=== PATIENT | male | born 1950 | race Asian ===

== ENCOUNTER 2016-12-12 10:05 | Emergency (ER) | payer MEDICARE, OTHER ==
[~2016-12-12] VITALS: Ht 162.6 cm; Wt 77.7 kg
[2016-12-12] MEDS ORDERED: ATOR40TA28 PO (10:32)
[2016-12-12] MEDS ORDERED: AMLO-512 PO (10:32)
[2016-12-12] MEDS ORDERED: TELM40 PO (10:32)
[2016-12-12] MEDS ORDERED: METO25XL PO (10:32)
[2016-12-12] MEDS ORDERED: SODIUM CHLORIDE 0.9% 500 ML IV ONE (10:45)
[2016-12-12] MEDS ORDERED: MECLIZINE HCL 25 MG TABLET PO ONE ×2 (10:45→12:15)
[2016-12-12 11:00] LABS: BASOPHILS % (AUTO) 1.9 % (0.0-2.0); EOSINOPHILS # (AUTO) 0.37 K/uL (0.00-0.70); EOSINOPHILS % (AUTO) 7.16 % (1.0-6.0); HEMATOCRIT 47.9 % (41-53); HEMOGLOBIN 16.1 g/dL (13.5-17.5); LYMPHOCYTES # (AUTO) 1.6 K/uL (1.0-4.8); LYMPHOCYTES % (AUTO) 29.6 % (22.0-44.0); MEAN CORPUSCULAR HEMOGLOBIN 27.6 pg (26.0-34.0); MEAN CORPUSCULAR HGB CONC 33.7 G/dL (31.0-37.0); MEAN CORPUSCULAR VOLUME 82 fL (80-100); MONOCYTES # (AUTO) 0.5 K/uL (0.1-1.0); MONOCYTES % (AUTO) 9.8 % (2.0-9.0); NEUTROPHILS # (AUTO) 2.7 K/uL (1.8-7.7); NEUTROPHILS % (AUTO) 51.5 % (40.0-70.0); PLATELET COUNT (AUTO) 168 K/uL (150-450); RED BLOOD CELL COUNT(AUTO) 5.85 MIL/uL (4.50-5.90); RED CELL DISTRIBUTION WIDTH 14.2 % (11.5-14.5)
[2016-12-12 11:02] LABS: GLUCOSE,POINT OF CARE 105 MG/DL (70-110)
[2016-12-12 11:15] LABS: ANION GAP 8 mmol/L (8-16); CALCIUM, TOTAL 8.7 mg/dL (8.8-10.5); CARBON DIOXIDE 28 mmol/L (22-29); CHLORIDE 104 mmol/L (98-107); CREATININE 0.96 mg/dL (0.60-1.30); GLOMERULAR FILTR. RATE CALC > 60 mL/min (>60); GLUCOSE,RANDOM 106 mg/dL (70-110); POTASSIUM 3.4 mmol/L (3.5-5.1); SODIUM SERUM 140 mmol/L (136-145); UREA NITROGEN, BLOOD 11 mg/dL (7-18)
[2016-12-12 11:20] LABS: ALANINE AMINOTRANSFERASE 25 U/L (12-78); ALBUMIN 4.1 g/dL (3.4-5.0); ALKALINE PHOSPHATASE 97 U/L (46-116); ASPARTATE AMINOTRANSFERASE 20 U/L (15-37); BILIRUBIN,TOTAL 0.7 mg/dL (0.1-1.0); LIPASE 168 U/L (73-393); TOTAL PROTEIN, SERUM 7.4 g/dL (6.4-8.2)
[2016-12-12] MEDS ORDERED: POTASSIUM CHLORIDE 20 MEQ ER TABLET PO ONE (11:30)
[2016-12-12] MEDS ORDERED: ONDANSETRON HCL 4 MG/2 ML VIAL IVP ONE (12:15)
[2016-12-12 14:26] LABS: APPEARANCE,URINE CLEAR (CLEAR); BILIRUBIN,URINE NEGATIVE (NEGATIVE); GLUCOSE, URINE (UA) NEGATIVE (NEGATIVE); KETONES,URINE NEGATIVE (NEGATIVE); LEUKOCYTE ESTERASE ,URINE NEGATIVE (NEGATIVE); NITRATE,URINE NEGATIVE (NEGATIVE); OCCULT BLOOD,URINE NEGATIVE (NEGATIVE); PROTEIN,URINE NEGATIVE (NEGATIVE); UROBILINOGEN,URINE 0.2 mg/dL (<=1.0)
[2016-12-12 14:32] LABS: RBC,URINE None Seen /HPF (0-2)
[2016-12-12 14:33] LABS: BACTERIA,URINE None Seen /HPF (None Seen); SQUAMOUS EPITHELIAL CELL,UR Rare /LPF (None Seen); WBC,URINE 0-2 /HPF (0-5)
[2016-12-12 16:30] VITALS: BP 122/74
== END 2016-12-12 16:30 | disposition home or self-care (01) ==
LOC: EMS 10:06
DX: R42 Dizziness and giddiness (principal); I10 Essential (primary) hypertension; I25.10 Atherosclerotic heart disease of native coronary artery without angina pectoris; E78.00 Pure hypercholesterolemia, unspecified; K21.9 Gastro-esophageal reflux disease without esophagitis; Z87.891 Personal history of nicotine dependence
CPT/HCPCS: 36415; 70450; 80053; 81001; 82948; 82962; 83690; 84484; 85025; 93005; 96361; 96374; 99285; J2405; J7030

== ENCOUNTER → 2017-03-16 | Outpatient (CLI) | payer MEDICARE, OTHER ==
[~2017-03-16] MED LIST: AMLO-512 PO; ATOR40TA28 PO; METO25XL PO; TELM40 PO
== END | disposition home or self-care (01) ==
LOC: RADPV 11:52
PROVIDERS: ATTEND Internal Medicine
DX: R91.8 Other nonspecific abnormal finding of lung field (principal); I70.0 Atherosclerosis of aorta
CPT/HCPCS: 71046

== ENCOUNTER 2018-05-16 23:01 | Emergency (ER) | payer MEDICARE, OTHER ==
[~2018-05-16] VITALS: Ht 162.6 cm; Wt 78.2 kg
[2018-05-16] MEDS ORDERED: FEXO1TAB8 PO (23:11)
[2018-05-16] MEDS ORDERED: ASPI-1182 PO (23:11)
[2018-05-16 23:30] LABS: BASOPHILS % (AUTO) 0.8 % (0.0-2.0); EOSINOPHILS % (AUTO) 4.2 % (1.0-6.0); HEMATOCRIT 46.3 % (41-53); HEMOGLOBIN 15.7 g/dL (13.5-17.5); LYMPHOCYTES # (AUTO) 2.1 K/uL (1.0-4.8); LYMPHOCYTES % (AUTO) 27.1 % (22.0-44.0); MEAN CORPUSCULAR HEMOGLOBIN 27.3 pg (26.0-34.0); MEAN CORPUSCULAR HGB CONC 33.9 G/dL (31.0-37.0); MEAN CORPUSCULAR VOLUME 81 fL (80-100); MONOCYTES # (AUTO) 0.7 K/uL (0.1-1.0); MONOCYTES % (AUTO) 8.9 % (2.0-9.0); NEUTROPHILS # (AUTO) 4.7 K/uL (1.8-7.7); PLATELET COUNT (AUTO) 205 K/uL (150-450); RED BLOOD CELL COUNT(AUTO) 5.74 MIL/uL (4.50-5.90); RED CELL DISTRIBUTION WIDTH 14.4 % (11.5-14.5)
[2018-05-16 23:43] LABS: ANION GAP 11 mmol/L (8-16); CALCIUM, TOTAL 9.4 mg/dL (8.8-10.5); CARBON DIOXIDE 27 mmol/L (22-29); CHLORIDE 101 mmol/L (98-107); CREATININE 1.13 mg/dL (0.60-1.30); GLOMERULAR FILTR. RATE CALC > 60 mL/min (>60); GLUCOSE,RANDOM 104 mg/dL (70-110); POTASSIUM 3.6 mmol/L (3.5-5.1); SODIUM SERUM 139 mmol/L (136-145); UREA NITROGEN, BLOOD 10 mg/dL (7-18)
[2018-05-16 23:49] LABS: ALANINE AMINOTRANSFERASE 25 U/L (12-78); ALBUMIN 4.4 g/dL (3.4-5.0); ALKALINE PHOSPHATASE 103 U/L (46-116); ASPARTATE AMINOTRANSFERASE 17 U/L (15-37); BILIRUBIN,TOTAL 0.5 mg/dL (0.1-1.0); TOTAL PROTEIN, SERUM 8.2 g/dL (6.4-8.2)
[2018-05-16 23:55] LABS: B-TYPE NATRIURETIC PEPTIDE 9 pg/mL (0-100)
[2018-05-17 01:52] VITALS: BP 165/100
== END 2018-05-17 01:53 | disposition home or self-care (01) ==
LOC: EMS 23:02
DX: I11.0 Hypertensive heart disease with heart failure (principal); I50.9 Heart failure, unspecified; E78.00 Pure hypercholesterolemia, unspecified; I25.10 Atherosclerotic heart disease of native coronary artery without angina pectoris; K21.9 Gastro-esophageal reflux disease without esophagitis; Z79.899 Other long term (current) drug therapy; Z87.891 Personal history of nicotine dependence; Z79.82 Long term (current) use of aspirin
CPT/HCPCS: 93005

== ENCOUNTER 2018-10-18 12:20 | Emergency (ER) | payer MEDICARE, OTHER ==
[~2018-10-18] VITALS: Ht 170.2 cm; Wt 81.8 kg
[~2018-10-18 12:20] MED LIST changes: -AMLO-512 PO; +AMLO10TA7 PO; +ASPI-1182 PO; -ATOR40TA28 PO; +FEXO1TAB8 PO; -METO25XL PO
[2018-10-18] MEDS ORDERED: LIDOCAINE 2%/EPI 1:200,000/PF 10 ML VIAL INJ ONE (13:45)
[2018-10-18] MEDS ORDERED: OXYMETAZOLINE HCL 0.05% 15 ML NASAL SPRAY NASAL ONE (13:45)
[2018-10-18 14:59] LABS: BASOPHILS % (AUTO) 0.7 % (0.0-2.0); HEMATOCRIT 45.1 % (41-53); HEMOGLOBIN 14.6 g/dL (13.5-17.5); LYMPHOCYTES # (AUTO) 1.8 K/uL (1.0-4.8); LYMPHOCYTES % (AUTO) 15.6 % (22.0-44.0); MEAN CORPUSCULAR HEMOGLOBIN 26.8 pg (26.0-34.0); MEAN CORPUSCULAR HGB CONC 32.3 G/dL (31.0-37.0); MEAN CORPUSCULAR VOLUME 83 fL (80-100); MONOCYTES % (AUTO) 8.9 % (2.0-9.0); NEUTROPHILS # (AUTO) 8.2 K/uL (1.8-7.7); NEUTROPHILS % (AUTO) 70.8 % (40.0-70.0); PLATELET COUNT (AUTO) 198 K/uL (150-450); RED BLOOD CELL COUNT(AUTO) 5.44 MIL/uL (4.50-5.90); RED CELL DISTRIBUTION WIDTH 14.3 % (11.5-14.5)
[2018-10-18 15:19] LABS: PROTHROMBIN TIME 10.4 SEC (9.4-11.6)
[2018-10-18 15:45] VITALS: BP 164/77
[2018-10-18] MEDS ORDERED: CeFAZolin 1 GM/DEXTROSE 50 ML IV ONE (16:00)
== END 2018-10-18 16:27 | disposition short-term general hospital (02) ==
LOC: EMS 12:21
DX: R04.0 Epistaxis (principal); I25.10 Atherosclerotic heart disease of native coronary artery without angina pectoris; K21.9 Gastro-esophageal reflux disease without esophagitis; E78.00 Pure hypercholesterolemia, unspecified; I10 Essential (primary) hypertension; Z87.891 Personal history of nicotine dependence; Z79.82 Long term (current) use of aspirin
CPT/HCPCS: 30905; 36415; 85025; 85610; 96365; 99285; J0690

== ENCOUNTER 2023-03-30 07:31 | Emergency (ER) | payer MEDICARE, OTHER ==
[~2023-03-30] VITALS: Ht 165.1 cm; Wt 77.7 kg
[~2023-03-30 07:31] MED LIST changes: +AMLO-258 PO; -AMLO10TA7 PO; -ASPI-1182 PO; +ASPI-1444 PO
[2023-03-30 07:33] VITALS: TEMP 98.2
[2023-03-30] MEDS ORDERED: FEXO-353 PO (07:37)
[2023-03-30] MEDS ORDERED: ROSU5TAB PO (07:37)
[2023-03-30 07:48] VITALS: BP 146/90; PULSE 74; RESP 14
== END 2023-03-30 07:58 | disposition home or self-care (01) ==
LOC: EMS 07:42
DX: I10 Essential (primary) hypertension (principal); E78.00 Pure hypercholesterolemia, unspecified; I25.10 Atherosclerotic heart disease of native coronary artery without angina pectoris; Z87.891 Personal history of nicotine dependence
CPT/HCPCS: 99281; Z7502